=== PATIENT | female | born 1985 | race Native Hawaiian/Other Pacific Islander ===

== ENCOUNTER 2018-01-10 10:57 | Emergency (ER) | payer BC, OTHER ==
[2018-01-10 11:01] VITALS: BP 102/65; PULSE 65; RESP 18; TEMP 99.3; O2SAT 100
--- NOTE | 2018-01-10 12:13 | ED PDOC ---
HPI: Abdomen Time Seen by Provider: 01/10/18 11:22 Chief Complaint (Nursing): Abdominal Pain Chief Complaint (Provider): Lower Abdominal Pain History Per: Patient History/Exam Limitations: no limitations Onset/Duration Of Symptoms: Days (3x) Current Symptoms Are (Timing): Still Present Quality Of Discomfort: "Pain" Associated Symptoms: denies: Fever, Chest Pain, Urinary Symptoms Additional Complaint(s): 32 year old female presents to the ED complaining of lower abdominal pain onset for 3 days. Reports on Monday night, she had a spontaneous miscarriage of 11 weeks at [facility] where she presented with vaginal bleeding. She was seen by OB at [facility] [place] and diagnosed with miscarriage. She was doing well afterwards until Monday night, she started having abdominal pain. Today, she went to Dr. Pratt office and felt dizzy and weak. Dr. De La Paz called EMS to transport the patient to [place] ED for further evaluation. Patient reports there is scant amount of vaginal bleeding, lower back pain and lower abdominal pain. Denies chest pain, syncope or urinary problems. Of note: Patient is G1, P0, A1. PMD: Yuval De La Paz Past Medical History Reviewed: Historical Data, Nursing Documentation, Vital Signs Vital Signs: Last Vital Signs Temp 99.3 F 01/10/18 11:00 Pulse 65 01/10/18 11:00 Resp 18 01/10/18 11:00 BP 102/65 01/10/18 11:00 Pulse Ox 100 01/10/18 15:48 - Medical History PMH: No Chronic Diseases - Surgical History Surgical History: No Surg Hx - Family History Family History: States: Unknown Family Hx - Home Medications Home Medications: Ambulatory Orders Medication Instructions Recorded Cephalexin [Keflex] 500 mg PO BID #14 capsule 01/10/18 oxyCODONE/Acetaminophen [Percocet 1 ea PO Q6 PRN #10 tab 01/10/18 5/325 mg Tab] - Allergies Allergies/Adverse Reactions: Allergies Allergy/AdvReac Type Severity Reaction Status Date / Time No Known Allergies Allergy Verified 01/10/18 11:13 Review of Systems ROS Statement: Except As Marked, All Systems Reviewed And Found Negative Constitutional: Negative for: Fever Cardiovascular: Negative for: Chest Pain Gastrointestinal: Positive for: Abdominal Pain Genitourinary Female: Positive for: Vaginal Bleeding. Negative for: Dysuria, Frequency, Incontinence Musculoskeletal: Positive for: Back Pain Neurological: Negative for: Other (syncope) Physical Exam - Reviewed Nursing Documentation Reviewed: Yes Vital Signs Reviewed: Yes - Physical Exam Appears: Positive for: Well, Non-toxic, No Acute Distress Head Exam: Positive for: ATRAUMATIC, NORMAL INSPECTION, NORMOCEPHALIC Skin: Positive for: Normal Color, Warm, Dry Eye Exam: Positive for: Normal appearance, EOMI, PERRL ENT: Positive for: Normal ENT Inspection Neck: Positive for: Normal, Painless ROM, Supple. Negative for: Decreased ROM Cardiovascular/Chest: Positive for: Regular Rate, Rhythm. Negative for: Murmur Respiratory: Positive for: Normal Breath Sounds. Negative for: Decreased Breath Sounds, Wheezing, Respiratory Distress Gastrointestinal/Abdominal: Positive for: Tenderness (throughout lower abdomen ) Back: Positive for: Normal Inspection. Negative for: L CVA Tenderness, R CVA Tenderness Extremity: Positive for: Normal ROM. Negative for: Tenderness, Pedal Edema, Deformity Neurologic/Psych: Positive for: Alert, Oriented (x3) - Laboratory Results Result Diagrams: 01/10/18 12:30 01/10/18 12:30 - ECG O2 Sat by Pulse Oximetry: 100 (RA) Pulse Ox Interpretation: Normal Medical Decision Making Medical Decision Making: Time: 1145 Initial Impression: lower abdominal pain s/p spontaneous miscarriage Differential Diagnosis includes but is not limited to: retention of products of conception Initial Plan: --BMP --CBC w/ Differential --Morphine 2mg --Pelvis/Transvag US [US] --Transvaginal [US] --ED Urine Dipstick (POC) -- serum [Beta-HCG, Quantitative] --Reevaluation Patient's blood type is A positive. Time: [address] De La Paz regarding patient who recommends US and lab Time: 1433 HISTORY: lower abdominal pain, miscarriage 3 days ago according to the patient who apparently had an outside study -no prior outside images are outside reports presented. LMP 10/21/2017 COMPARISON: None available. TECHNIQUE: Transvaginal FINDINGS: UTERUS: Measures retroflexed cm. 8.2 x 5.4 x 5.3 No fibroid or other mass lesion seen. ENDOMETRIUM: Measures heterogeneous with some bordering increased vascularity measuring at least 1.3 cm in diameter. Appearances compatible with a recent miscarriage. Consider follow-up imaging in 1- 2 weeks to reassess. No intrauterine gestation seen. No marked prominence of any residual products of conception. Minimal residual products of conception not excluded given this appearance. Follow-up recommended. CERVIX: No cervical abnormality identified. RIGHT OVARY: Measures 4.4 x 4.0 x 2.8 cm. No solid mass. Normal flow. A 1.9 mm minimally complicated cyst is noted LEFT OVARY: Measures 5.0 x 3.8 x 3.2 cm. No solid mass. Normal flow. FREE FLUID: No significant free fluid noted. OTHER FINDINGS: None. IMPRESSION: History of recent miscarriage by history which apparently patient was also - told as well from an outside ultrasound study which is not available. No intrauterine gestation currently present. The appearance of the endometrium is compatible with a recent miscarriage. No significant appearing retained products of conception per these images. Minimal residual such products are not excluded. Consider short-term follow-up imaging to reassess as clinically indicated. Other findings -as above. [address] De La Paz who recommends to start keflex and follow up with him in the office. Patient is stable for discharge. Scribe Attestation: Documented by Fernanda Merino, acting as a scribe for Gertrudis Peralta MD Provider Scribe Attestation: All medical record entries made by the Scribe were at my direction and personally dictated by me. I have reviewed the chart and agree that the record accurately reflects my personal performance of the history, physical exam, medical decision making, and the department course for this patient. I have also personally directed, reviewed, and agree with the discharge instructions and disposition. Disposition - Clinical Impression Clinical Impression: Spontaneous - Patient ED Disposition Is Patient to be Admitted: No Counseled Patient/Family Regarding: Studies Performed, Diagnosis, Need For Followup - Disposition Referrals: Yuval De La Paz MD [Family Provider] - Disposition: Routine/Home Disposition Time: 16:00 Condition: GOOD Additional Instructions: Take motrin for pain. Follow up with your PCP in 2 days [facility], thank you for letting us take care of you today. Your provider was Gertrudis Peralta MD and you were treated for ABD PAIN. The emergency medical care you received today was directed at your acute symptoms. If you were prescribed any medication, please fill it and take as directed. It may take several days for your symptoms to resolve. Return to the Emergency Department if your symptoms worsen, do not improve, or if you have any other problems. Please contact your doctor or call one of the physicians/clinics you have been referred to that are listed on the Patient Visit Information form that is included in your discharge packet. Bring any paperwork you were given at discharge with you along with any medications you are taking to your follow up visit. Our treatment cannot replace ongoing medical care by a primary care provider outside of the emergency department. Thank you for allowing the [facility] team to be part of your care today. If you had an X-Ray or CT scan: A Radiologist will review the ED reading if any change in treatment is needed we will contact you. If you had a blood, urine, or wound culture: It will take several days for the results, if any change in treatment is needed we will contact you. If you had an STI test: It will take 48 hours for the results. Please call after 1 week if you have not heard back. Prescriptions: Cephalexin [Keflex] 500 mg PO BID #14 capsule oxyCODONE/Acetaminophen [Percocet 5/325 mg Tab] 1 ea PO Q6 PRN #10 tab PRN Reason: Pain, Severe (8-10) Instructions: Miscarriage
[2018-01-10 12:47] LABS: BASO # 0.1 K/uL (0.0-0.2); BASO % 0.4 % (0.0-2.0); EOS # 0.1 K/uL (0.0-0.7); EOS % 0.6 % (0.0-4.0); HEMOGLOBIN 11.4 g/dL (12.0-16.0); LYMPH # 1.1 K/uL (1.0-4.3); LYMPH % 8.1 % (20.0-40.0); MEAN CELL VOLUME 83.9 fl (81.0-99.0); MEAN CORPUSCULAR HEMOGLOBIN 28.4 pg (27.0-31.0); MEAN CORPUSCULAR HGB CONC 33.9 g/dL (33.0-37.0); MEAN PLATELET VOLUME 8.8 fl (7.2-11.7); MONO # 0.8 K/uL (0.0-0.8); MONO % 5.3 % (0.0-10.0); NEUT # 12.1 K/uL (1.8-7.0); NEUT % 85.6 % (50.0-75.0); PLATELET COUNT 160 K/uL (130-400); RBC 4.02 Mil/uL (3.80-5.20); RED CELL DISTRIBUTION WIDTH 15.1 % (11.5-14.5); WHITE BLOOD COUNT 14.2 K/uL (4.8-10.8)
[2018-01-10 13:00] LABS: BLOOD UREA NITROGEN 3 mg/dl (7-17); CALCIUM 9.4 mg/dL (8.4-10.2); GFR AFRICAN-AMERICAN > 60; GFR NON-AFRICAN AMERICAN > 60
[2018-01-10 13:48] LABS: ANISOCYTOSIS SLIGHT; BANDS 3 % (0-2); EOSINOPHIL 1 % (0-7); HYPOCHROMIC SLIGHT; LYMPHOCYTE 14 % (20-50); MONOCYTE 5 % (0-10); NEUTROPHIL 77 % (42-75); PLATELET ESTIMATE NORMAL (NORMAL); TOTAL CELLS COUNTED 100
[2018-01-10 13:49] LABS: TOXIC GRANULATION PRESENT
--- NOTE | 2018-01-10 14:35 | US ---
Date of service: 01/10/2018 HISTORY: lower abdominal pain, miscarriage 3 days ago according to the patient who apparently had an outside study -no prior outside images are outside reports presented. LMP 10/21/2017 COMPARISON: None available. TECHNIQUE: Transvaginal FINDINGS: UTERUS: Measures retroflexed cm. 8.2 x 5.4 x 5.3 No fibroid or other mass lesion seen. ENDOMETRIUM: Measures heterogeneous with some bordering increased vascularity measuring at least 1.3 cm in diameter. Appearances compatible with a recent miscarriage. Consider follow-up imaging in 1- 2 weeks to reassess. No intrauterine gestation seen. No marked prominence of any residual products of conception. Minimal residual products of conception not excluded given this appearance. Follow-up recommended. CERVIX: No cervical abnormality identified. RIGHT OVARY: Measures 4.4 x 4.0 x 2.8 cm. No solid mass. Normal flow. A 1.9 mm minimally complicated cyst is noted LEFT OVARY: Measures 5.0 x 3.8 x 3.2 cm. No solid mass. Normal flow. FREE FLUID: No significant free fluid noted. OTHER FINDINGS: None. IMPRESSION: History of recent miscarriage by history which apparently patient was also -told as well from an outside ultrasound study which is not available. No intrauterine gestation currently present. The appearance of the endometrium is compatible with a recent miscarriage. No significant appearing retained products of conception per these images. Minimal residual such products are not excluded. Consider short-term follow-up imaging to reassess as clinically indicated. Other findings -as above.
[2018-01-10] MEDS ORDERED: Oxycodone/Acetaminophen 5/325 mg Tab PO STA (16:10)
== END 2018-01-10 16:40 | disposition home or self-care (01) ==
LOC: H.ER 10:57
DX: O03.9 Complete or unspecified spontaneous abortion without complication (principal)
CPT/HCPCS: 76830; 80048; 84702; 85025; 96374; 99283; J2270